=== PATIENT | female | born 1940 | race Caucasian/White ===

== ENCOUNTER 2023-05-21 00:42 | Outpatient (REF) | payer MEDICARE, MEDICAID, SELFPAY ==
[2023-05-21 10:10] LABS: Bilirubin Urine NEGATIVE (NEGATIVE); Blood Urine NEGATIVE (NEGATIVE); Clarity Urine CLEAR (CLEAR); Color Urine YELLOW (YELLOW); Glucose Urine UA NEGATIVE (NEGATIVE); Ketones Urine NEGATIVE (NEGATIVE); Leukocyte Esterase Urine NEGATIVE (NEGATIVE); Nitrite Urine NEGATIVE (NEGATIVE); Protein Urine NEGATIVE (NEG/TRACE); Urobilinogen Urine 0.2 EU/dL (0.2-1.0); pH Urine 5.5 (5.0-9.0)
[2023-05-21 10:11] LABS: Urine Microscopic Indicated NO
== END 2023-05-21 00:43 ==
LOC: LAB 00:42
PROVIDERS: PCP Family Medicine; Visit Provider Family Medicine
DX: R41.82 Altered mental status, unspecified (principal)
CPT/HCPCS: 81003

== ENCOUNTER 2023-05-23 01:36 | Outpatient (REF) | payer MEDICARE, MEDICAID, SELFPAY ==
[2023-05-23 10:18] LABS: Basophils Percent Auto 0.3 % (0.2-2.0); Eosinophils Absolute Auto 0.1 10^3/uL (0.0-0.7); Eosinophils Percent Auto 1.8 % (0.9-7.0); Hematocrit 32.5 % (36.0-48.0); Immature Granulocytes Abs Auto 0.01 10^3/uL (0.00-0.03); Immature Granulocytes Pct Auto 0.2 % (0.0-0.5); Lymphocytes Absolute Auto 1.4 10^3/uL (1.2-3.8); Lymphocytes Percent Auto 20.6 % (20.5-60.0); Mean Corpuscular HGB Conc 30.8 g/dL (29.9-35.2); Mean Corpuscular Hemoglobin 27.2 pg (26.7-34.0); Mean Corpuscular Volume 88.3 fL (81.0-99.0); Mean Platelet Volume 11.1 fL (9.5-13.5); Monocytes Absolute Auto 0.7 10^3/uL (0.3-0.8); Monocytes Percent Auto 10.2 % (1.7-12.0); Neutrophils Absolute Auto 4.4 10^3/uL (1.4-6.5); Neutrophils Percent Auto 66.9 % (43.0-75.0); Platelet Count 286 10^3/uL (150-450); Red Blood Count 3.68 10^6/uL (4.20-5.40); Red Cell Distribution Width 16.2 % (11.0-15.0); White Blood Count 6.6 10^3/uL (4.0-11.0)
[2023-05-23 12:13] LABS: Anion Gap 13.6; BUN Creatinine Ratio 22.8; Calcium 9.1 mg/dL (8.5-10.1); Carbon Dioxide 30.3 mmol/L (21.0-32.0); Chloride 102 mmol/L (98-107); Estimated GFR (African America >60 (>=60); Estimated GFR (Non-African Ame 58 (>=60); Glucose 134 mg/dL (74-106); Potassium 3.9 mmol/L (3.5-5.1); Sodium 142 mmol/L (136-145)
== END 2023-05-23 01:37 | disposition home or self-care (01) ==
LOC: LAB 01:36
PROVIDERS: PCP Family Medicine; Visit Provider Family Medicine
DX: R41.82 Altered mental status, unspecified (principal); I11.0 Hypertensive heart disease with heart failure; I50.31 Acute diastolic (congestive) heart failure
CPT/HCPCS: 36415; 80048; 85025

== ENCOUNTER 2023-07-07 07:10 | Observation (INO) | payer MEDICARE, OTHER, MEDICAID, SELFPAY ==
[2023-07-07] VITALS (26 sets, daily range): BP systolic 101–159; BP diastolic 66–118; PULSE 68–134; RESP 14–30; TEMP 36.8–37.2; O2SAT 85–100; BMI 25.7; BMI 23.5; BMI 22.5
--- NOTE | 2023-07-07 07:14 | CT_ITS ---
The [address] [address] Patient Name: MYRANDA VIDAL MRN: [facility]:[id number] date: 1940 Sex: F Assigned Patient Location: ER Current Patient Location: ER Accession/Order Number: [id number] Exam Date: 07/07/2023 08:12 Report Date: 07/07/2023 09:01 At the request of: BEATA DOSS Procedure: CT head/brain wo con CT cervical spine CLINICAL: Fall with large laceration to left forehead TECHNIQUE: Contiguous transaxial images obtained from skullbase through cervical spine without administration of intravenous contrast. Coronal and sagittal reformations were obtained. Dose reduction: mA and/or kV are were adjusted by automated exposure control software based upon patients height and weight. FINDINGS: Comparison made to CT cervical spine dated 03/14/2022. There is osteopenia of the cervical spine. There is mild levocurvature of the cervical spine. There is no prevertebral soft tissue swelling or acute cervical spine fracture. There is multilevel degenerative disc disease of the cervical spine, most pronounced from C3-C4 through C6-C7. There is minimal retrolisthesis of C4 on C5 and C5 on C6. There is minimal anterolisthesis of C7 on T1. 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 There is multilevel and bilateral uncovertebral joint osteoarthritis, most pronounced from C3-C4 through C6-C7. There is also multilevel and bilateral facet joint osteoarthritis. 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 There is incomplete fusion of the posterior arch of C1, an anatomic normal variant. There is bilateral carotid artery atherosclerosis. Partially visualized is thoracic aortic aneurysm status post stent. There is ar 9 mm hypoattenuating nodule within the thyroid isthmus. CT/CT head/brain wo con IMPRESSION: 1. No acute cervical spine fracture. 2. Osteopenia. 3. Multilevel degenerative disc disease of the cervical spine that is most pronounced from C3-C4 through C6-C7 with minimal degenerative listheses as described. There is also multilevel and bilateral uncovertebral and facet joint osteoarthritis. 4. Bilateral carotid artery atherosclerosis as well as partially visualized thoracic aortic aneurysm status post stent. 5. 9 mm hypoattenuating nodule within the thyroid isthmus. CT head without contrast CLINICAL: fall . TECHNIQUE: Contiguous transaxial images were obtained from skull base to vertex without administration of intravenous contrast. Dose reduction: mA and/or kV are were adjusted by automated exposure control software based upon patients height and weight. FINDINGS: Comparison made to head CT dated 03/14/2022. There is left frontal scalp hematoma with laceration. There is no underlying acute calvarial fracture. The visualized globes and orbits are grossly normal. There is maxillary ethmoid sinus mucosal thickening with partial opacification of the right maxillary sinus. There are no paranasal sinus air-fluid levels. There is right temporomandibular joint osteoarthritis. Bilateral mastoid air cells are clear. The ventricles and sulci are prominent bilaterally. There is periventricular and deep subcortical white matter low-attenuation, consistent with small vessel ischemic disease. There are tiny old caudate head, basal ganglia, and thalamic lacunar infarcts. There are small old bilateral cerebellar infarcts. There is a small left hemispheric subdural hematoma of mixed attenuation containing both hyperdense and hypodense fluid, likely representing an acute on subacute to chronic subdural hematoma. It measures up to 9 mm in thickness with local mass effect/local sulcal effacement. There is no significant midline shift. There is no intraparenchymal hemorrhage, mass lesion, or acute large vessel ischemia by noncontrast CT. There is intracranial atherosclerosis. IMPRESSION: 1. Left frontal scalp hematoma with laceration. 2. Small left subdural hematoma of mixed attenuation, consistent with acute on subacute/chronic subdural hematoma. It measures up to 9 mm in thickness with local mass effect/local sulcal effacement, but without significant midline shift. 3. Cerebral atrophy chronic small vessel ischemic disease as described. 4. 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 5. Additional findings as described. I discussed critical findings with Dr. Doss in the emergency department at 8:58 AM on 07/07/2023. Electronically authenticated by: CRISTHIAN MEDINA Date: 07/07/2023 09:01
--- NOTE | 2023-07-07 07:14 | CT_ITS ---
The [address] [address] Patient Name: MYRANDA VIDAL MRN: [facility]:[id number] date: 1940 Sex: F Assigned Patient Location: ER Current Patient Location: ER Accession/Order Number: [id number] Exam Date: 07/07/2023 08:12 Report Date: 07/07/2023 09:01 At the request of: BEATA DOSS Procedure: CT cervical spine wo con CT cervical spine CLINICAL: Fall with large laceration to left forehead TECHNIQUE: Contiguous transaxial images obtained from skullbase through cervical spine without administration of intravenous contrast. Coronal and sagittal reformations were obtained. Dose reduction: mA and/or kV are were adjusted by automated exposure control software based upon patients height and weight. FINDINGS: Comparison made to CT cervical spine dated 03/14/2022. There is osteopenia of the cervical spine. There is mild levocurvature of the cervical spine. There is no prevertebral soft tissue swelling or acute cervical spine fracture. There is multilevel degenerative disc disease of the cervical spine, most pronounced from C3-C4 through C6-C7. There is minimal retrolisthesis of C4 on C5 and C5 on C6. There is minimal anterolisthesis of C7 on T1. 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 There is multilevel and bilateral uncovertebral joint osteoarthritis, most pronounced from C3-C4 through C6-C7. There is also multilevel and bilateral facet joint osteoarthritis. 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 There is incomplete fusion of the posterior arch of C1, an anatomic normal variant. There is bilateral carotid artery atherosclerosis. Partially visualized is thoracic aortic aneurysm status post stent. There is ar 9 mm hypoattenuating nodule within the thyroid isthmus. CT/CT cervical spine wo con IMPRESSION: 1. No acute cervical spine fracture. 2. Osteopenia. 3. Multilevel degenerative disc disease of the cervical spine that is most pronounced from C3-C4 through C6-C7 with minimal degenerative listheses as described. There is also multilevel and bilateral uncovertebral and facet joint osteoarthritis. 4. Bilateral carotid artery atherosclerosis as well as partially visualized thoracic aortic aneurysm status post stent. 5. 9 mm hypoattenuating nodule within the thyroid isthmus. CT head without contrast CLINICAL: fall . TECHNIQUE: Contiguous transaxial images were obtained from skull base to vertex without administration of intravenous contrast. Dose reduction: mA and/or kV are were adjusted by automated exposure control software based upon patients height and weight. FINDINGS: Comparison made to head CT dated 03/14/2022. There is left frontal scalp hematoma with laceration. There is no underlying acute calvarial fracture. The visualized globes and orbits are grossly normal. There is maxillary ethmoid sinus mucosal thickening with partial opacification of the right maxillary sinus. There are no paranasal sinus air-fluid levels. There is right temporomandibular joint osteoarthritis. Bilateral mastoid air cells are clear. The ventricles and sulci are prominent bilaterally. There is periventricular and deep subcortical white matter low-attenuation, consistent with small vessel ischemic disease. There are tiny old caudate head, basal ganglia, and thalamic lacunar infarcts. There are small old bilateral cerebellar infarcts. There is a small left hemispheric subdural hematoma of mixed attenuation containing both hyperdense and hypodense fluid, likely representing an acute on subacute to chronic subdural hematoma. It measures up to 9 mm in thickness with local mass effect/local sulcal effacement. There is no significant midline shift. There is no intraparenchymal hemorrhage, mass lesion, or acute large vessel ischemia by noncontrast CT. There is intracranial atherosclerosis. IMPRESSION: 1. Left frontal scalp hematoma with laceration. 2. Small left subdural hematoma of mixed attenuation, consistent with acute on subacute/chronic subdural hematoma. It measures up to 9 mm in thickness with local mass effect/local sulcal effacement, but without significant midline shift. 3. Cerebral atrophy chronic small vessel ischemic disease as described. 4. 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 5. Additional findings as described. I discussed critical findings with Dr. Doss in the emergency department at 8:58 AM on 07/07/2023. Electronically authenticated by: CRISTHIAN MEDINA Date: 07/07/2023 09:01
--- NOTE | 2023-07-07 07:18 | XR_ITS ---
The [address] [address] Patient Name: MYRANDA VIDAL MRN: [facility]:[id number] date: 1940 Sex: F Assigned Patient Location: ED.MAIN Current Patient Location: ER Accession/Order Number: [id number] Exam Date: 07/07/2023 08:26 Report Date: 07/07/2023 08:49 At the request of: BEATA DOSS Procedure: XR knee LT 3V LEFT KNEE THREE VIEWS: 07/07/2023 8:26 AM EDT Clinical Data: fall Comparison: No previous Apparently, the patient would not extend the leg. Therefore, projections are fairly suboptimal. No obvious acute fracture or dislocation. No joint effusion is evident. Some degenerative spurring is present. Although no sunrise view is provided, the anterior compartment is likely at least moderately narrowed XR/XR knee LT 3V IMPRESSION: 1. As above. Electronically authenticated by: NAKUL HAGEN Date: 07/07/2023 08:49
[2023-07-07] MEDS: ONDANSETRON PF 4 MG/2 ML VIAL IV ×2 (07:25→10:11)
--- NOTE | 2023-07-07 07:47 | ED_ITS ---
HPI - Head Injury General Chief complaint: Head Injury Stated complaint: HEAD LACERATION, FALL Time Seen by Provider: 07/07/23 07:14 Source: other Source comment: [facility] Mode of arrival: ambulance Limitations: no limitations History of Present Illness HPI Narrative: 83-year-old female presents for head injury. She sustained a forehead laceration. She was found in her room at the [facility]. She has dementia and is unable to provide us any history. She was transported here by paramedics and there was a great deal of bleeding in the prehospital setting. No further history is obtainable. Related Data Allergies Allergy/AdvReac Type Severity Reaction Status Date / Time No Known Drug Allergies Allergy Verified 07/07/23 07:30 Review of Systems ROS Narrative not obtainable, dementia Exam Narrative Exam Narrative: Nurses note and vital signs reviewed and patient is not hypoxic. General: The patient appears well and in no apparent distress. Patient is resting comfortably on cart. Skin: Warm, dry, pallor noted. There is no rash noted. Head: Normocephalic, vertically oriented laceration on the forehead. It is 3 cm in length. There is bleeding occurring. Nonpulsatile. Eye: Normal conjunctiva, no drainage Ears, Nose, Mouth, and Throat: oral mucosa is moist. Nares patent. Cardiovascular: irregularly irregular, tachycardic Respiratory: Patient is in no distress, no accessory muscle use, lungs are clear to auscultation, no wheezing, rales or rhonchi Back: non-tender GI: soft and nontender Musculoskeletal: both hips are nontender, left hip is bruised and is tender Neurological: she is oriented to self and place. She doesn't remember what happened and she doesn't know the year. Psychiatric: Cooperative Constitutional Vital Signs, click to edit/add: Last Vital Signs Temp 98.8 F 07/07/23 07:16 Pulse 111 H 07/07/23 09:30 Resp 27 H 07/07/23 09:30 BP 109/75 07/07/23 09:30 Pulse Ox 100 07/07/23 08:40 O2 Del Method Room Air 07/07/23 07:45 O2 Flow Rate 2 07/07/23 07:45 Course Vital Signs Vital signs: Vital Signs Temperature 98.8 F 07/07/23 07:16 Pulse Rate 132 H 07/07/23 07:16 Respiratory Rate 16 07/07/23 07:16 Blood Pressure 159/118 H 07/07/23 07:16 Pulse Oximetry 92 L 07/07/23 07:16 Oxygen Delivery Method Room Air 07/07/23 07:16 Temperature 98.8 F 07/07/23 07:16 Pulse Rate 111 H 07/07/23 09:30 Respiratory Rate 27 H 07/07/23 09:30 Blood Pressure 109/75 07/07/23 09:30 Pulse Oximetry 100 07/07/23 08:40 Oxygen Delivery Method Room Air 07/07/23 07:45 Oxygen Delivery Flow Rate 2 07/07/23 07:45 MDM - Head Injury MDM Narrative Medical decision making narrative: The patient presented after a fall and she was found to have a 9 mm subdural hematoma. Sutures were required on the forehead. I discussed the case thoroughly with the patient's daughter and we have agreed that the patient will be admitted here for observation. she has DNR CC status and she would not be transferred to trauma facility and the patient's doctor is in agreement with this plan. She's been nauseous and has received IV Zofran and Tylenol for pain. Differential Diagnosis Differential diagnosis: Likely concussion without loss of consciousness, epidural hematoma, closed head injury, subarachnoid hematoma, subdural hematoma and other (cervical spine fracture) Lab Data Attestation: I reviewed the patient's lab results. Labs: Lab Results 07/07/23 Range/Units 08:05 WBC 6.0 (4.0-11.0) 10^3/uL RBC 3.25 L (4.20-5.40) 10^6/uL Hgb 8.9 L (12.0-16.0) g/dL Hct 29.5 L (36.0-48.0) % MCV 90.8 (81.0-99.0) fL MCH 27.4 (26.7-34.0) pg MCHC 30.2 (29.9-35.2) g/dL RDW 16.3 H (11.0-15.0) % Plt Count 244 (150-450) 10^3/uL MPV 10.9 (9.5-13.5) fL Neut % (Auto) 57.2 (43.0-75.0) % Lymph % (Auto) 29.5 (20.5-60.0) % [place] % (Auto) 10.4 (1.7-12.0) % Eos % (Auto) 2.3 (0.9-7.0) % Baso % (Auto) 0.3 (0.2-2.0) % Neut # (Auto) 3.4 (1.4-6.5) 10^3/uL Lymph # (Auto) 1.8 (1.2-3.8) 10^3/uL [place] # (Auto) 0.6 (0.3-0.8) 10^3/uL Eos # (Auto) 0.1 (0.0-0.7) 10^3/uL Baso # (Auto) 0.0 (0.0-0.1) 10^3/uL Abs Immat Gran (auto) 0.02 (0.00-0.03) 10^3/uL Imm/Tot Granulo (auto) 0.3 (0.0-0.5) % Sodium 142 (136-145) mmol/L Potassium 4.5 (3.5-5.1) mmol/L Chloride 105 (98-107) mmol/L Carbon Dioxide 28.8 (21.0-32.0) mmol/L Anion Gap 12.7 BUN 19.0 H (7.0-18.0) mg/dL Creatinine 0.75 (0.55-1.02) mg/dL Est GFR ( Amer) >60 (>=60) Est GFR (Non-Af Amer) >60 (>=60) BUN/Creatinine Ratio 25.3 Glucose 96 (74-106) mg/dL Calcium 8.7 (8.5-10.1) mg/dL Imaging Data CT brain and CT C-sspine: Radiologist's impression: CT C-spine shows no acute findings. CT brain shows 9 mm left subdural hematoma without midline shift. ECG Data Attestation: I personally reviewed and interpreted this ECG as follows: (EKG on my interpretation shows atrial fibrillation with a rate of sixty-eight.) Discharge Plan Discharge Chief Complaint: Head Injury Clinical Impression: Acute subdural hematoma, Forehead laceration Patient Disposition: Admitted as Observation Time of Disposition Decision: 10:17 Condition: Serious Referrals: MUKUL BOLES [Primary Care Provider] - 1 week
--- NOTE | 2023-07-07 07:54 | ECG_ITS ---
The [facility] Test Date: 2023-07-07 Pat Name: MYRANDA VIDAL Department: Room: - Gender: Female Band Tier: : 1940 Requested By: MUKUL BOLES Order Number: [id number] Reading MD: ANGELO DILLON Measurements Intervals [place] Rate: 68 P: -[address] FL: -14812 QRS: 106 QRSD: 76 T: 30 QT: 306 QTc: 323 Interpretive Statements 1210 Atrial fibrillation 7100 Abnormal right axis deviation 8305 Short QTc interval 9150 abnormal ECG No previous ECG available for comparison Electronically Signed On 07-08-2023 7:10:52 EDT by ANGELO DILLON
[2023-07-07 08:21] LABS: Anion Gap 12.7; BUN Creatinine Ratio 25.3; Calcium 8.7 mg/dL (8.5-10.1); Carbon Dioxide 28.8 mmol/L (21.0-32.0); Chloride 105 mmol/L (98-107); Estimated GFR (African America >60 (>=60); Estimated GFR (Non-African Ame >60 (>=60); Glucose 96 mg/dL (74-106); Potassium 4.5 mmol/L (3.5-5.1); Sodium 142 mmol/L (136-145)
[2023-07-07 08:50] LABS: Basophils Percent Auto 0.3 % (0.2-2.0); Eosinophils Absolute Auto 0.1 10^3/uL (0.0-0.7); Eosinophils Percent Auto 2.3 % (0.9-7.0); Hematocrit 29.5 % (36.0-48.0); Hemoglobin 8.9 g/dL (12.0-16.0); Immature Granulocytes Abs Auto 0.02 10^3/uL (0.00-0.03); Immature Granulocytes Pct Auto 0.3 % (0.0-0.5); Lymphocytes Absolute Auto 1.8 10^3/uL (1.2-3.8); Lymphocytes Percent Auto 29.5 % (20.5-60.0); Mean Corpuscular HGB Conc 30.2 g/dL (29.9-35.2); Mean Corpuscular Hemoglobin 27.4 pg (26.7-34.0); Mean Corpuscular Volume 90.8 fL (81.0-99.0); Mean Platelet Volume 10.9 fL (9.5-13.5); Monocytes Absolute Auto 0.6 10^3/uL (0.3-0.8); Monocytes Percent Auto 10.4 % (1.7-12.0); Neutrophils Absolute Auto 3.4 10^3/uL (1.4-6.5); Neutrophils Percent Auto 57.2 % (43.0-75.0); Platelet Count 244 10^3/uL (150-450); Red Blood Count 3.25 10^6/uL (4.20-5.40); Red Cell Distribution Width 16.3 % (11.0-15.0)
[2023-07-07] MEDS: ACETAMINOPHEN 500 MG TABLET PO (10:11)
--- NOTE | 2023-07-07 11:56 | PM.HP ---
H&P: HPI History of Present Illness Chief complaint: Fall, head injury Narrative: 83 y/o female to ER after a fall. History of dementia and resides in [facility]. Patient had unwitnessed fall and found on the floor. Patient confused and unable to give history. To ER and large forehead laceration repaired. CT head showed small subdural hematoma. Patient is DNRCC and family did not want transfer and would not want surgical intervention. Admitted for observation. C/o mild LEAHY but no nausea. Review of Systems ROS Status of ROS unobtainable due to mental status PFSH PFSH Family History (Updated 07/07/23 @ 11:20 by Mildred Eckert LPN) Mother Family history of CHF (congestive heart failure) Family history of hypertension Family history of myocardial infarction Sister Family history of cancer Family history of myocardial infarction Sister Family history of cancer Brother Family history of cancer Family history of hypertension Family history of myocardial infarction Social History (Updated 07/07/23 @ 11:22 by Mildred Eckert LPN) Within the past year, how often did you have a drink containing alcohol: never Within the past year, how often did you have six or more drinks on one occasion: never Score interpretation: A score less than 3 is consistent with normal alcohol consumption. Smoking status: Former smoker Second hand tobacco smoke exposure: No Non-prescribed substance use: denies use Previous occupational history: service worker Known occupational exposures/hazards: No Highest level of school completed/degree received: high school graduate Do you want help with school or training: No Are you now , , , , never or living with a partner: In a typical week, how many times do you talk on the telephone with family, friends, or neighbors: 3 or more times per week How often do you get together with friends or relatives: 3 or more times per week How often do you attend christian or samaritan services: never Do you belong to any clubs or organizations such as christian groups unions, fraternal or athletic groups, or school groups: no Total score: 1 Score interpretation: A score of less than or equal to 1 indicates the most socially isolated. Little interest or pleasure in doing things: not at all Feeling down, depressed, or hopeless: not at all Feel stressed/tense/nervous/anxious/difficulty sleeping: not at all Due to disability, difficulty making decisions: No Do you think of yourself as: straight/heterosexual Gender Identity: female Meds Home Medications and Allergies Home Medications Medication Instructions Recorded Confirmed Type acetaminophen 325 mg tablet 650 mg PO BID PRN fever or pain 07/07/23 07/07/23 History (Athenol) albuterol sulfate 2.5 mg/3 mL 2.5 mg inhalation Q4H PRN 07/07/23 07/07/23 History (0.083 %) solution for nebulization shortness of breath or wheezing atorvastatin 40 mg tablet 40 mg PO QDAY 07/07/23 07/07/23 History benzonatate 200 mg capsule 200 mg PO .Q8 PRN cough 07/07/23 07/07/23 History clopidogrel 75 mg tablet 75 mg PO QDAY 07/07/23 07/07/23 History diltiazem HCl 180 mg capsule,24 180 mg PO Q24H 07/07/23 07/07/23 History hr,extended release furosemide 40 mg tablet 40 mg PO .MON., WED., FRI. 07/07/23 07/07/23 History guaifenesin 100 mg/5 mL oral 200 mg PO Q6H PRN cough 07/07/23 07/07/23 History liquid (Expectorant Cough Syrup) loperamide 2 mg tablet (Imodium 2 mg PO Q6H PRN loose stool 07/07/23 07/07/23 History A-D) mirtazapine 7.5 mg tablet 7.5 mg PO BEDTIME 07/07/23 07/07/23 History multivitamin (Daily Multi-Vitamin 1 tab PO DAILY 07/07/23 07/07/23 History tablet) ondansetron HCl 4 mg tablet 4 mg PO TID-QID PRN nausea and 07/07/23 07/07/23 History vomiting pantoprazole 40 mg tablet,delayed 40 mg PO QDAY 07/07/23 07/07/23 History release Allergies Allergy/AdvReac Type Severity Reaction Status Date / Time codeine Allergy Verified 07/07/23 11:16 hydralazine Allergy Verified 07/07/23 11:16 hydrochlorothiazide Allergy Verified 07/07/23 11:16 lorazepam Allergy Verified 07/07/23 11:16 losartan Allergy Verified 07/07/23 11:16 morphine Allergy Verified 07/07/23 11:16 oxycodone Allergy Verified 07/07/23 11:16 Sulfa (Sulfonamide Allergy Verified 07/07/23 11:16 Antibiotics) tositumomab iodine-131 Allergy Verified 07/07/23 11:16 tramadol Allergy Verified 07/07/23 11:16 codeine Allergy Uncoded 07/07/23 11:16 Exam Constitutional Vital Signs, click to edit/add: Last Vital Signs Temp 98.8 F 07/07/23 07:16 Pulse 123 H 07/07/23 10:40 Resp 17 07/07/23 10:40 BP 115/78 07/07/23 10:30 Pulse Ox 100 07/07/23 08:40 O2 Del Method Room Air 07/07/23 07:45 O2 Flow Rate 2 07/07/23 07:45 Documenting provider has reviewed patient's vital signs: yes Common normals: no apparent distress and alert HENMT Common normals: normocephalic Head and scalp: laceration (Laceration on left forehead closed in ER.) Eye Common normals: PERRL and EOMs intact bilaterally Respiratory Common normals: normal respiratory effort and clear to auscultation bilaterally Cardio Common normals: regular rate, regular rhythm, no gallops, no murmurs and no rub GI Common normals: Normal to inspection, nondistended, normoactive bowel sounds present and non-tender Extremity General: no edema Results Labs Labs: Short CBC 07/07/23 Range/Units 08:05 WBC 6.0 (4.0-11.0) 10^3/uL Hgb 8.9 L (12.0-16.0) g/dL Hct 29.5 L (36.0-48.0) % Plt Count 244 (150-450) 10^3/uL BMP 07/07/23 08:05 Sodium 142 Potassium 4.5 Chloride 105 Carbon Dioxide 28.8 BUN 19.0 H Creatinine 0.75 Glucose [address] scan - head: Attestation: I have reviewed the pertinent imaging results. Assessment and Plan Assessment and Plan (1) Acute subdural hematoma: (2) Benign essential hypertension: (3) Chronic heart failure with preserved ejection fraction (HFpEF): (4) Paroxysmal atrial fibrillation: (5) Peripheral vascular disease: (6) CAD (coronary artery disease): (7) Senile dementia: Plan Developed subdural hematoma after fall but DNRCC and family does not want intervention. Monitor mental status. If increased confusion or sedation will need repeat CT. Monitor hgb. Resume home medication. Likely return to [facility] in am.
--- NOTE | 2023-07-07 12:15 | CM.NOTE ---
Rounds made with Dr. Rob. Currently resides at [facility].
[2023-07-07] MEDS: MULTIVITAMIN TABLET 1 TAB PO (13:59)
[2023-07-07] MEDS: DILTIAZEM HCL 180 MG CAP.ER.24H PO (13:59)
[2023-07-07] MEDS: OMEPRAZOLE 40 MG CAPSULE.DR PO (13:59)
--- NOTE | 2023-07-07 15:17 | SWNOTE1 ---
Pt is from [facility] skilled nursing, plan is to return at discharge. SW did speak with pt's daughter in [facility] as well. She did ask about pt's code status and only doing comfort measures. Daughter did express her brother did ask about switching to a full code. SW let her know if pt is alert and oriented it would be her decision, but if she is not then the HCPOA would make that decision. SW let her know it would be a conversation with the physician. HCERYL also let daughter know to think about what the goal would be if they did switch her code status and what the pt could endure in regards to surgery/treatment.
[2023-07-07 16:38] LABS: Basophils Percent Auto 0.2 % (0.2-2.0); Eosinophils Percent Auto 0.1 % (0.9-7.0); Hematocrit 26.3 % (36.0-48.0); Hemoglobin 8.2 g/dL (12.0-16.0); Immature Granulocytes Abs Auto 0.03 10^3/uL (0.00-0.03); Immature Granulocytes Pct Auto 0.3 % (0.0-0.5); Mean Corpuscular HGB Conc 31.2 g/dL (29.9-35.2); Mean Corpuscular Hemoglobin 27.2 pg (26.7-34.0); Mean Corpuscular Volume 87.4 fL (81.0-99.0); Mean Platelet Volume 10.6 fL (9.5-13.5); Monocytes Absolute Auto 0.6 10^3/uL (0.3-0.8); Monocytes Percent Auto 7.3 % (1.7-12.0); Neutrophils Absolute Auto 6.9 10^3/uL (1.4-6.5); Neutrophils Percent Auto 80.1 % (43.0-75.0); Platelet Count 209 10^3/uL (150-450); Red Blood Count 3.01 10^6/uL (4.20-5.40); Red Cell Distribution Width 16.2 % (11.0-15.0); White Blood Count 8.6 10^3/uL (4.0-11.0)
[2023-07-07] MEDS: ACETAMINOPHEN 500 MG TABLET 1000 MG PO (18:18)
--- NOTE | 2023-07-07 19:31 | RESP.RT ---
No PRN breathing tx given. No respiratory distress noted.
[2023-07-08] MEDS: ACETAMINOPHEN 500 MG TABLET 1000 MG PO (04:15)
[2023-07-08 04:48] LABS: Basophils Percent Auto 0.3 % (0.2-2.0); Eosinophils Percent Auto 0.5 % (0.9-7.0); Hematocrit 25.6 % (36.0-48.0); Hemoglobin 7.7 g/dL (12.0-16.0); Immature Granulocytes Abs Auto 0.04 10^3/uL (0.00-0.03); Immature Granulocytes Pct Auto 0.5 % (0.0-0.5); Lymphocytes Absolute Auto 1.2 10^3/uL (1.2-3.8); Lymphocytes Percent Auto 15.1 % (20.5-60.0); Mean Corpuscular HGB Conc 30.1 g/dL (29.9-35.2); Mean Corpuscular Hemoglobin 27.2 pg (26.7-34.0); Mean Corpuscular Volume 90.5 fL (81.0-99.0); Mean Platelet Volume 10.4 fL (9.5-13.5); Monocytes Absolute Auto 0.8 10^3/uL (0.3-0.8); Monocytes Percent Auto 10.9 % (1.7-12.0); Neutrophils Absolute Auto 5.5 10^3/uL (1.4-6.5); Neutrophils Percent Auto 72.7 % (43.0-75.0); Platelet Count 206 10^3/uL (150-450); Red Blood Count 2.83 10^6/uL (4.20-5.40); Red Cell Distribution Width 16.3 % (11.0-15.0); White Blood Count 7.6 10^3/uL (4.0-11.0)
[2023-07-08 04:57] LABS: Anion Gap 11.2; BUN Creatinine Ratio 22.4; Calcium 8.4 mg/dL (8.5-10.1); Carbon Dioxide 27.1 mmol/L (21.0-32.0); Chloride 106 mmol/L (98-107); Estimated GFR (African America >60 (>=60); Estimated GFR (Non-African Ame >60 (>=60); Glucose 108 mg/dL (74-106); Potassium 4.3 mmol/L (3.5-5.1); Sodium 140 mmol/L (136-145)
[2023-07-08 05:03] VITALS: O2SAT 95
[2023-07-08 06:00] VITALS: BP 98/66; PULSE 103; RESP 18; TEMP 36.9; O2SAT 97
[2023-07-08 08:00] VITALS: RESP 16
[2023-07-08 11:25] VITALS: O2SAT 97
--- NOTE | 2023-07-08 11:31 | CM.NOTE ---
Rounds made with Dr. Rob. Returned to room and did speak with daughter regarding plan. Dr. Rob will repeat the CT head and likely Ms. Mariee will return to [facility] today.
--- NOTE | 2023-07-08 11:44 | CT_ITS ---
The [address] [address] Patient Name: MYRANDA VIDAL MRN: [facility]:[id number] date: 1940 Sex: F Assigned Patient Location: MS Current Patient Location: MS Accession/Order Number: [id number] Exam Date: 07/08/2023 11:38 Report Date: 07/08/2023 12:21 At the request of: GER FREEDMAN Procedure: CT head/brain wo con EXAM: CT head/brain wo con HISTORY: subdural hematoma history of fall. Comparison: CT head 07/07/2023 TECHNIQUE: Axial soft tissue and bone windows of the calvarium with coronal and sagittal reformats. CT dose reduction technique was used including Automated Exposure Control. Findings: Redemonstrated is a left scalp hematoma. No adjacent depressed or calvarial fracture. Mild mucosal thickening within the right maxillary sinus. The remainder of the paranasal sinuses and mastoid air cells are well aerated. No air-fluid levels. There has been interval progression of the previously identified left-sided subdural hematoma. This measures approximately 1.3 cm in maximum thickness. The hematoma now extends along the left posterior parietal as well as occipital and temporal lobes. There is a small amount of blood layering along the left tentorial leaf. Mild adjacent sulcal blunting with minimal, approximately 0.2-0.3 cm, of left to right midline shift. There is a small amount of extra-axial blood now seen adjacent to the left frontal lobe. The floyd-white matter differentiation is preserved. The brain parenchymal volume is reduced yet likely age appropriate. The ventricles are nondilated. The basal cisterns are patent. The craniovertebral junction is unremarkable. CT/CT head/brain wo con IMPRESSION: 1. Interval progression of the previously identified left-sided subdural bleed. There is also small amount of extra-axial blood now lung the left frontal lobe. Electronically authenticated by: FABRICIO DELCID Date: 07/08/2023 12:21
--- NOTE | 2023-07-08 11:46 | PM.DS1 ---
DS: Providers Provider Date of admission: 07/07/23 10:17 Primary care physician: MUKUL BOLES DS: Diagnosis Discharge Diagnosis (1) Acute subdural hematoma: (2) Benign essential hypertension: (3) Chronic heart failure with preserved ejection fraction (HFpEF): (4) Paroxysmal atrial fibrillation: (5) Peripheral vascular disease: (6) CAD (coronary artery disease): (7) Senile dementia: DS: Summary Hospital Course Hospital Course: Reason for admission: See H&P for details. 83 y/o female to ER after a fall. History of dementia and resides in [facility]. Patient had unwitnessed fall and found on the floor. Patient confused and unable to give history. To ER and large forehead laceration repaired. CT head showed small subdural hematoma. Patient is DNRCC and family did not want transfer and would not want surgical intervention. Admitted for observation. Hospital course: Resumed home medication. Patient c/o mild LEAHY but tolerable with tylenol. Overnight developed decreased agitation and confusion. Daughter reports last time in hospital developed delerium at night. Hgb slightly decreased. Repeat CT head performed and showed slight progression of bleed. Again, family does not want intervention and patient is DNRCC. Patient transferred back to [facility] and will continue to monitor. Resume home medication as directed. If patient continues to deteriorate may need hospice consult for comfort care. Time Spent with Patient Time attestation: Total time spent providing and/or coordinating discharge services: Exam Constitutional Vital Signs, click to edit/add: Last Vital Signs Temp 98.4 F 07/08/23 06:00 Pulse 103 H 07/08/23 06:00 Resp 16 07/08/23 08:00 BP 98/66 07/08/23 06:00 Pulse Ox 97 07/08/23 06:00 O2 Del Method Nasal Cannula 07/08/23 08:00 O2 Flow Rate 1 07/08/23 08:00 Documenting provider has reviewed patient's vital signs: yes Common normals: no apparent distress and alert HENMT Common normals: normocephalic Eye Common normals: PERRL and EOMs intact bilaterally Respiratory Common normals: normal respiratory effort and clear to auscultation bilaterally Cardio Common normals: regular rate, regular rhythm, no gallops, no murmurs and no rub GI Common normals: Normal to inspection, nondistended, normoactive bowel sounds present and non-tender Extremity Common normals: no pedal edema DS: Data Data Completed and Pending Labs on day of discharge: Labs from last 24 hours 07/08/23 07/07/23 04:18 16:28 WBC 7.6 8.6 RBC 2.83 L 3.01 L Hgb 7.7 L 8.2 L Hct 25.6 L 26.3 L MCV 90.5 87.4 MCH 27.2 27.2 MCHC 30.1 31.2 RDW 16.3 H 16.2 H Plt Count 206 209 MPV 10.4 10.6 Neut % (Auto) 72.7 80.1 H Lymph % (Auto) 15.1 L 12.0 L Green % (Auto) 10.9 7.3 Eos % (Auto) 0.5 L 0.1 L Baso % (Auto) 0.3 0.2 Neut # (Auto) 5.5 6.9 H Lymph # (Auto) 1.2 1.0 L Green # (Auto) 0.8 0.6 Eos # (Auto) 0.0 0.0 Baso # (Auto) 0.0 0.0 Abs Immat Gran (auto) 0.04 H 0.03 Imm/Tot Granulo (auto) 0.5 0.3 Sodium 140 Potassium 4.3 Chloride 106 Carbon Dioxide 27.1 Anion Gap 11.2 BUN 19.0 H Creatinine 0.85 Est GFR ( Amer) >60 Est GFR (Non-Af Amer) >60 BUN/Creatinine Ratio 22.4 Glucose 108 H Calcium 8.4 L Discharge Plan Discharge Disposition: Xfer SNF Condition: Serious Discharge Medications: Continued atorvastatin 40 mg tablet 40 mg PO QDAY clopidogrel 75 mg tablet 75 mg PO QDAY diltiazem HCl 180 mg capsule,extended release 24 hr 180 mg PO Q24H furosemide 40 mg tablet 40 mg PO .MON., WED., FRI. mirtazapine 7.5 mg tablet 7.5 mg PO BEDTIME multivitamin [Daily Multi-Vitamin] Tablet 1 tab PO DAILY pantoprazole 40 mg tablet,delayed release (DR/EC) 40 mg PO QDAY acetaminophen [Athenol] 325 mg tablet 650 mg PO BID PRN (Reason: fever or pain) albuterol sulfate 2.5 mg /3 mL (0.083 %) solution for nebulization 2.5 mg inhalation Q4H PRN (Reason: shortness of breath or wheezing) guaifenesin [Expectorant Cough Syrup] 100 mg/5 mL liquid 200 mg PO Q6H PRN (Reason: cough) loperamide [Imodium A-D] 2 mg tablet 2 mg PO Q6H PRN (Reason: loose stool) ondansetron HCl 4 mg tablet 4 mg PO TID-QID PRN (Reason: nausea and vomiting) Forms: Portal Instructions
[2023-07-08 12:32] VITALS: BP 104/59
[2023-07-08] MEDS: OMEPRAZOLE 40 MG CAPSULE.DR PO (12:32)
[2023-07-08] MEDS: DILTIAZEM HCL 180 MG CAP.ER.24H PO (12:32)
[2023-07-08] MEDS: MULTIVITAMIN TABLET 1 TAB PO (12:37)
--- NOTE | 2023-07-08 13:54 | SWNOTE1 ---
Pt is ready for discharge back to [facility] [employer]. SW updated packet and notified nursing, BCC, and family of time. SW to send dc med rec over once finalized. SW did review TENA form with pt's daughter today. Pt's daughter voiced understanding, no questions. Pt's daughter signed form, original given to daughter and copy placed on chart.
--- NOTE | 2023-07-08 14:11 | SWNOTE1 ---
CHERYL sent dc med rec to [facility]. CHERYL reminded nursing to print discharge packet as well.
== END 2023-07-08 15:12 ==
LOC: ER 10:17 → MS 10:54
PROVIDERS: Admitting Provider Family Medicine; Emergency Provider Emergency Medicine; PCP Family Medicine; Visit Provider Family Medicine
DX: S06.5X0A Traumatic subdural hemorrhage without loss of consciousness, initial encounter (principal); S01.81XA Laceration without foreign body of other part of head, initial encounter; F03.90 Unspecified dementia, unspecified severity, without behavioral disturbance, psychotic disturbance, mood disturbance, and anxiety; I48.0 Paroxysmal atrial fibrillation; I73.9 Peripheral vascular disease, unspecified; I25.10 Atherosclerotic heart disease of native coronary artery without angina pectoris; I11.0 Hypertensive heart disease with heart failure; I50.32 Chronic diastolic (congestive) heart failure; W19.XXXA Unspecified fall, initial encounter; Z66 Do not resuscitate; Z87.891 Personal history of nicotine dependence; Z79.899 Other long term (current) drug therapy
CPT/HCPCS: 12013; 36415; 70450; 72125; 73562; 80048; 85025; 93005; 94761; 96374; 96376; 99285; G0378